=== PATIENT | female | born 1945 | race Caucasian/White ===

== ENCOUNTER → 2017-07-14 | Outpatient (CLI) | payer OTHER, BC ==
[~2017-07-14] VITALS: Ht 157.5 cm; Wt 72.6 kg
[~2017-07-14] MED LIST: ARICEPT10 MG PO; ASPIR 8181 MG PO; FISH OIL 1,001000 M2 PO; IPRATROPIUM BRO15 ML NASAL; LOVASTATIN40 MG PO; PROBIOTIC1 EAC1 PO; ZOLOFT50 MG PO
--- NOTE | ~2017-07-14 | S ---
[facility] [employer] [place] [address] SURGICAL PATH RPT PROCEDURE Name: KING PIPER [facility] [id number] Admission: 07/14/17 Date of : 43 Discharge: Report #: [id number] Path Case #: [id number] PATHOLOGY REPORT COLLECTION DATE: 07/14/2017 RECEIVED DATE: 07/14/2017 SUBMITTING PHYS: Dr. Vladimir Shoemaker OTHER PHYS: Dr. Jenniffer Awad SPECIMEN(S) RECEIVED: A.Polyp at descending colon * * * * * * * * * * * * FINAL DIAGNOSIS: Polyp, at descending colon, endoscopic biopsy: - Compatible with an inflamed hyperplastic polyp. - Negative for dysplasia. (IUV:mml; 07/17/2017) PATHOLOGIST: Gina Gibbs M.D. REPORT ELECTRONICALLY SIGNED BY: Gina Gibbs M.D. DATE/TIME: 07/17/2017 15:50 * * * * * * * * * * * * GROSS PATHOLOGY: Received in formalin labeled "King Piper BX of polyp at descending colon," is a segment of rivera soft tissue measuring 0.5 x 0.3 x 0.1 cm in maximum dimension. The specimen is submitted entirely in cassette A1. (SDY; 07/14/2017) CLINICAL HISTORY: Diverticulitis Diverticulosis INITIAL CPT CODE(S): A; 98296 Professional services performed by [facility] at [facility] [place] [address] Technical services performed by [facility] at [address] [place] [address], [place] [address], [place] [address]. [facility] [address] [place] [address] SURGICAL PATH RPT PROCEDURE Name: KING PIPER Room #: REG [facility] [place].#: [id number] Admission: 07/14/17 Date of : 43 Discharge: Report #: [id number] Path Case #: [id number] [place] [address] [address] PHONE: [phone] DIRECTOR: Derrell Jones M.D. * * * END OF REPORT * * *
--- NOTE | ~2017-07-14 | P ---
[facility] [place] [address] PROCEDURE REPORT Name: KING CHUN Room #: REG [facility].#: [id number] Admission: 07/14/17 Attend Phys: Vladimir Marroquin Discharge: Date of : 43 Report #: [id number] THIS REPORT FOR: //name// CC: Vladimir Awad MD DATE OF SERVICE: 07/14/2017 PROCEDURE PERFORMED: Colonoscopy with biopsies. HISTORY OF PRESENT ILLNESS: The patient is a 72-year-old female with a history of diverticulitis last fall, treated with 2 rounds of antibiotics. She does report improvement, but still has intermittent pain at times. No family history of colon cancer. DESCRIPTION OF PROCEDURE: The risks and benefits of the procedure were explained to the patient, those risks including but not limited to bleeding, perforation, the risk of sedation. She understood these risks and gave informed consent. Sedation was given using propofol per anesthesia. Next, a digital rectal exam was initially performed, which was normal. Next, using a standard Fujinon colonoscope, the scope was placed in the patient's anus and advanced under direct vision to the cecum. The overall prep was excellent. The cecum and ileocecal valve were normal in appearance. A few small diverticula were noted in the ascending colon. No evidence of inflammation. Transverse colon was normal. In the descending colon, a 4 mm sessile polyp was noted. This was removed by biopsy forceps. Otherwise normal. Multiple diverticula noted in the sigmoid colon, no evidence of inflammation. The rectal mucosa was normal. On retroflexion, no abnormalities were noted. The scope was then withdrawn and the procedure terminated. The patient tolerated the procedure well. IMPRESSION: 1. Diverticulosis in the ascending and sigmoid colon, no evidence of inflammation. 2. Small colon polyp in the descending colon. 3. Otherwise, normal colonoscopy. RECOMMENDATIONS: 1. Await biopsy results. 2. If polyp is hyperplastic, repeat in 10 years; if adenomatous polyp, repeat in [address] [address] PROCEDURE REPORT Name: KING CHUN Room #: REG Nicolette De Oliveira#: [id number] Admission: 07/14/17 Attend Phys: Vladimir Marroquin Discharge: Date of : 43 Report #: [id number] Thank you for allowing me to participate in her care. <ELECTRONICALLY SIGNED> By: Vladimir Shoemaker MD 07/21/17 [id number] Vladimir Shoemaker MD /nt
== END ==
LOC: GI 08:07
DX: K63.5 Polyp of colon (principal); K57.30 Diverticulosis of large intestine without perforation or abscess without bleeding; E78.5 Hyperlipidemia, unspecified; F32.89 Other specified depressive episodes; F41.8 Other specified anxiety disorders; Z87.891 Personal history of nicotine dependence; Z98.890 Other specified postprocedural states; Z79.82 Long term (current) use of aspirin; Z79.899 Other long term (current) drug therapy
CPT/HCPCS: 62110; 62900